=== PATIENT | male | born 1965 | race African-American/Black ===

== ENCOUNTER 2022-04-15 03:08 | Emergency (ER) | payer MEDICAID ==
[~2022-04-15] VITALS: Ht 195.6 cm; Wt 113.9 kg
[2022-04-15 03:59] LABS: Basophils # (auto) 0.1 10 ^3/uL (0-0.2); Basophils % (auto) 1.6 % (0.0-2.0); Eosinophils # (auto) 0.1 10 ^3/uL (0-0.8); Hemoglobin 13.1 g/dL (13.5-17.5); Lymphocytes # (auto) 1.8 10 ^3/uL (0.4-5.4); Lymphocytes % (auto) 20.9 % (10.0-50.0); Mean Corpuscular Hgb Conc. 34.4 g/dL (32.0-36.0); Mean Corpuscular Volume 78.5 fL (80.0-100.0); Monocytes # (auto) 0.5 10 ^3/uL (0-1.3); Monocytes % (auto) 6.2 % (0.0-12.0); Neutrophils % (auto) 70.3 % (37.0-80.0); Nucleated Red Blood Cells % 0.1 %; Red Blood Cells 4.84 10^6/uL (4.5-5.90); Red Cell Distribution Width 14.6 % (11.8-14.3); White Blood Cell 8.6 10^3/uL (4.4-10.8)
[2022-04-15 04:16] LABS: Albumin 3.6 g/dL (3.4-5.0); BUN/Creatinine Ratio 17.5; Calcium 8.8 mg/dL (8.5-10.1); Potassium 3.9 mmol/L (3.5-5.1)
[2022-04-15 04:19] LABS: Bilirubin, Total 0.2 mg/dL (0.2-1.0); Total Protein 7.3 g/dL (6.4-8.2)
[2022-04-15 04:26] LABS: Urine Bacteria NONE SEEN /hpf (None Seen); Urine Blood Negative /uL (Negative); Urine Specific Gravity 1.024 (1.001-1.035); Urine WBC <1 /hpf (0 - 3)
[2022-04-15] MEDS ORDERED: cefTRIAXone 1GM/50ML D5W 50 ML IV ONE (04:30)
[2022-04-15] MEDS ORDERED: AZITHROMYCIN 250 MG TAB PO ONE (04:30)
[2022-04-15] MEDS ORDERED: InsuLIN REG 1unit/0.01ml Soln (100units/ml) IV ONE (05:45)
[2022-04-15] MEDS ORDERED: SODIUM CHLORIDE 0.9% 1,000 ML IV ONE (05:45)
[2022-04-15 08:00] VITALS: BP 153/82
[2022-04-15] MEDS ORDERED: DOXY-340 PO (08:14)
[2022-04-15] MEDS ORDERED: METF-371 PO (08:19)
== END 2022-04-15 09:10 | disposition home or self-care (01) ==
LOC: ER 03:08
DX: R73.9 Hyperglycemia, unspecified (principal); R30.0 Dysuria
CPT/HCPCS: 36415; 71045; 80053; 81001; 82962; 84484; 85025; 96365; 96375; 99284; J0696; J1815; J7030

== ENCOUNTER 2022-11-20 03:01 | Inpatient (IN) | payer MEDICAID ==
[~2022-11-20] VITALS: Ht 195.6 cm; Wt 111.8 kg
[~2022-11-20 03:01] MED LIST: DOXY1CAP57 PO; METF-371 PO
[2022-11-20 03:35] VITALS: PULSE 82; RESP 28; O2SAT 98
[2022-11-20 03:44] LABS: Base Excess 0.7 mmol/L (-2.0-2.0)
[2022-11-20 04:07] LABS: Basophils # (auto) 0.1 10 ^3/uL (0-0.2); Eosinophils # (auto) 0.1 10 ^3/uL (0-0.8); Eosinophils % (auto) 1.2 % (0.0-7.0); Hematocrit 43.9 % (41.0-53.0); Hemoglobin 14.1 g/dL (13.5-17.5); Lymphocytes # (auto) 2.1 10 ^3/uL (0.4-5.4); Mean Corpuscular Hgb Conc. 32.2 g/dL (32.0-36.0); Monocytes # (auto) 0.9 10 ^3/uL (0-1.3); Neutrophils % (auto) 65.4 % (37.0-80.0)
[2022-11-20 04:08] LABS: Basophils % (auto) 0.6 % (0.0-2.0); Lymphocytes % (auto) 23.4 % (10.0-50.0); Mean Corpuscular Hemoglobin 25.5 pg (28.0-32.0); Mean Corpuscular Volume 79.4 fL (80.0-100.0); Monocytes % (auto) 9.4 % (0.0-12.0); Neutrophils # (auto) 5.9 10 ^3/uL (1.6-8.6); Red Blood Cells 5.52 10^6/uL (4.5-5.90); Red Cell Distribution Width 14.3 % (11.8-14.3); White Blood Cell 9.1 10^3/uL (4.4-10.8)
[2022-11-20 04:25] LABS: Alanine Aminotransferase 30 U/L (7-40); Albumin 4.6 g/dL (3.2-4.8); Alkaline Phosphatase 115 U/L (46-116); Anion Gap 7 (5-15); Aspartate Aminotransferase 10 U/L (13-40); BUN/Creatinine Ratio 9.9 (10.0-20.0); Bilirubin, Total 0.4 mg/dL (0.2-1.0); Blood Urea Nitrogen 10 mg/dL (9-23); Calcium 9.8 mg/dL (8.7-10.4); Carbon Dioxide 26 mmol/L (20-30); Chloride 101 mmol/L (98-107); Magnesium 1.8 mg/dL (1.6-2.6); Potassium 3.8 mmol/L (3.5-5.1); Sodium 134 mmol/L (136-145); Total Protein 7.9 g/dL (5.7-8.2)
[2022-11-20 04:31] LABS: Glucose 475 mg/dL (74-106)
[2022-11-20 05:10] LABS: Urine Bacteria NONE SEEN /hpf (None Seen); Urine Blood Negative /uL (Negative); Urine Clarity Clear (Clear); Urine Color Colorless (Yellow); Urine Protein, UAD Negative (Negative); Urine Specific Gravity 1.025 (1.001-1.035); Urine Urobilinogen Normal (Negative); Urine WBC <1 /hpf (0 - 3)
[2022-11-20] MEDS: amLODIPine BESYLATE 5 MG TAB PO ONE ×2 (05:25→05:32)
[2022-11-20] MEDS ORDERED: InsuLIN REG 1unit/0.01ml Soln (100units/ml) IV ONE (05:30)
[2022-11-20] MEDS ORDERED: SODIUM CHLORIDE 0.9% 1,000 ML IV ONE (06:45)
[2022-11-20 09:00] LABS: Amphetamine Screen, Urine Pos (NEGATIVE)
[2022-11-20 09:01] LABS: Barbiturate Scree,Urine Neg (NEGATIVE); Benzodiazephine Screen, Urine Neg (NEGATIVE); Cannabinoid Screen, Urine Neg (NEGATIVE); Cocaine Screen, Urine Neg (NEGATIVE); Opiate Scree,Urine Neg (NEGATIVE); Phencyclidine Screen, Urine Neg (NEGATIVE)
[2022-11-20 09:12] VITALS: PULSE 93; RESP 11; O2SAT 98
[2022-11-20] MEDS ORDERED: HYDROcodone-ACET 5/325MG TAB PO PRN (11:15)
[2022-11-20] MEDS ORDERED: METOCLOPRAMIDE HCL 5MG/ml INJ 2ml VIAL IV PRN (11:15)
[2022-11-20] MEDS ORDERED: DEXTROSE (50%) 50ML SYRG IV PRN ×2 (11:15→15:15)
[2022-11-20] MEDS ORDERED: NITROGLYCERIN 0.4 MG SL TAB SL PRN (11:15)
[2022-11-20] MEDS ORDERED: MORPHINE SULFATE INJ 2 MG/ml SYRG IV PRN (11:15)
[2022-11-20] MEDS ORDERED: cloNIDine HCL 0.1 MG TAB PO PRN (11:30)
[2022-11-20] MEDS ORDERED: ACCU-CHEK COMFORT CURVE STRIP VI SCH (11:30)
[2022-11-20] MEDS ORDERED: InsuLIN REG 1unit/0.01ml Soln (100units/ml) SC SCH (11:30)
[2022-11-20 11:42] LABS: Chloride 106 mmol/L (98-107); Potassium 3.8 mmol/L (3.5-5.1); Sodium 139 mmol/L (136-145)
[2022-11-20 11:43] LABS: Anion Gap 6 (5-15); Carbon Dioxide 27 mmol/L (20-30)
[2022-11-20 11:44] LABS: Calcium 9.4 mg/dL (8.5-10.1)
[2022-11-20] MEDS: SODIUM CHLORIDE 0.9% 1,000 ML IV SCH ×2 (11:45→19:15)
[2022-11-20 11:49] LABS: Blood Urea Nitrogen 10 mg/dL (9-23)
[2022-11-20 12:14] LABS: Glucose 354 mg/dL (74-106)
[2022-11-20] MEDS: ACCU-CHEK COMFORT CURVE STRIP VI SCH ×2 (18:00→23:23)
[2022-11-20] MEDS: InsuLIN REG 1unit/0.01ml Soln (100units/ml) SC SCH ×2 (18:46→23:33)
[2022-11-20] MEDS: metFORMIN HYDROCHLORIDE 850 MG TAB PO SCH (18:46)
[2022-11-20] MEDS: glipiZIDE 5 MG TAB PO SCH (18:47)
[2022-11-20 20:00] VITALS: PULSE 97; RESP 14; O2SAT 96
[2022-11-20] MEDS: LOSARTAN POTASSIUM 25 MG TAB PO SCH (21:27)
[2022-11-20 22:50] VITALS: BP 128/63; PULSE 83; RESP 17
[2022-11-21] VITALS (7 sets, daily range): BP systolic 118–143; BP diastolic 75–90; PULSE 85–89; RESP 17–20; TEMP 97.9–98.5; O2SAT 96–99
[2022-11-21] MEDS: SODIUM CHLORIDE 0.9% 1,000 ML IV SCH ×3 (03:50→19:15)
[2022-11-21] MEDS: ACCU-CHEK COMFORT CURVE STRIP VI SCH ×3 (06:02→18:19)
[2022-11-21] MEDS: InsuLIN REG 1unit/0.01ml Soln (100units/ml) SC SCH ×3 (06:03→18:19)
[2022-11-21] MEDS: glipiZIDE 5 MG TAB PO SCH ×2 (06:04→18:14)
[2022-11-21 06:45] LABS: Chloride 105 mmol/L (98-107); Potassium 3.6 mmol/L (3.5-5.1); Sodium 138 mmol/L (136-145)
[2022-11-21 06:46] LABS: Anion Gap 6 (5-15); Calcium 8.7 mg/dL (8.5-10.1); Carbon Dioxide 27 mmol/L (20-30)
[2022-11-21 06:51] LABS: BUN/Creatinine Ratio 12.7 (10.0-20.0); Blood Urea Nitrogen 10 mg/dL (9-23)
[2022-11-21 06:52] LABS: Glucose 164 mg/dL (74-106)
[2022-11-21] MEDS: metFORMIN HYDROCHLORIDE 850 MG TAB PO SCH ×2 (08:18→18:14)
[2022-11-21] MEDS: ENOXAPARIN SOD 40 MG/0.4 ML SYRINGE SC SCH (08:18)
[2022-11-21] MEDS: LOSARTAN POTASSIUM 25 MG TAB PO SCH ×2 (08:19→22:16)
[2022-11-21] MEDS: PANTOPRAZOLE 40 MG TAB PO SCH (08:19)
[2022-11-21] MEDS ORDERED: BLOO1KIT60 XX (12:30)
[2022-11-21] MEDS ORDERED: GLIP5TAB12 PO (12:30)
[2022-11-21] MEDS ORDERED: LOS25T PO (12:30)
[2022-11-21] MEDS ORDERED: LANC-347 XX (12:30)
[2022-11-21] MEDS ORDERED: METF-371 PO (12:30)
[2022-11-22] MEDS: InsuLIN REG 1unit/0.01ml Soln (100units/ml) SC SCH ×4 (00:33→18:09)
[2022-11-22] MEDS: SODIUM CHLORIDE 0.9% 1,000 ML IV SCH ×3 (03:15→18:37)
[2022-11-22 04:59] VITALS: BP 127/75; PULSE 86; RESP 17; TEMP 98.9; O2SAT 98
[2022-11-22] MEDS: ACCU-CHEK COMFORT CURVE STRIP VI SCH ×4 (06:00→18:05)
[2022-11-22] MEDS: glipiZIDE 5 MG TAB PO SCH ×2 (07:19→18:08)
[2022-11-22 08:00] VITALS: BP 136/69; PULSE 16; PULSE 89; RESP 16; RESP 89; TEMP 98.3; O2SAT 97
[2022-11-22 08:41] VITALS: BP 136/69; PULSE 89; RESP 16; TEMP 98.3; O2SAT 97
[2022-11-22] MEDS: metFORMIN HYDROCHLORIDE 850 MG TAB PO SCH ×2 (08:42→18:08)
[2022-11-22] MEDS: LOSARTAN POTASSIUM 25 MG TAB PO SCH ×2 (10:44→20:39)
[2022-11-22] MEDS: PANTOPRAZOLE 40 MG TAB PO SCH (10:45)
[2022-11-22] MEDS: ENOXAPARIN SOD 40 MG/0.4 ML SYRINGE SC SCH (10:45)
[2022-11-22 12:54] VITALS: BP 139/87; PULSE 90; RESP 17; TEMP 97.6; O2SAT 100
[2022-11-22 16:54] VITALS: BP 138/83; PULSE 88; RESP 17; TEMP 98; O2SAT 100
[2022-11-22 20:00] VITALS: BP 109/58; PULSE 16; PULSE 89; RESP 16; RESP 89; TEMP 98.7; O2SAT 97
== END 2022-11-22 23:00 | disposition home or self-care (01) | DRG 420 ==
LOC: EDBD 03:01 → ER 03:01 → OVERFLOW 11:09 → WEST WING 21:06
PROVIDERS: ADMIT Hospitalist; ATTEND Hospitalist
DX: E11.65 Type 2 diabetes mellitus with hyperglycemia (principal); E86.0 Dehydration; F15.10 Other stimulant abuse, uncomplicated; F17.210 Nicotine dependence, cigarettes, uncomplicated; R35.89 Other polyuria; R63.1 Polydipsia; R30.0 Dysuria; I10 Essential (primary) hypertension; Z91.148 Patient's other noncompliance with medication regimen for other reason; Z79.84 Long term (current) use of oral hypoglycemic drugs; Z79.899 Other long term (current) drug therapy; Z59.00 Homelessness unspecified
CPT/HCPCS: 36415; 36600; 71045; 80048; 80053; 80307; 81001; 82010; 82805; 82962; 83036; 83735; 85025; 96374; 96376; G0378; J1815